=== PATIENT | female | born 1970 | race American Indian/Alaskan Native ===

== ENCOUNTER 2017-08-07 13:16 | Outpatient (CLI) | payer OTHER ==
[2017-08-07] MEDS ORDERED: PROVENTIL IH ONE (14:25)
== END 2017-08-07 13:17 | disposition home or self-care (01) ==
LOC: PF 13:16
PROVIDERS: ATTEND Internal Medicine
DX: J44.9 Chronic obstructive pulmonary disease, unspecified (principal)